=== PATIENT | female | born 1965 | race African-American/Black ===

== ENCOUNTER 2019-02-05 09:57 | Outpatient (CLI) | payer OTHER ==
--- NOTE | 2019-02-05 13:34 | Mammography Report ---
DEXA BONE DENSITY SCAN INDICATION: Postmenopausal. COMPARISON: None available. LUMBAR SPINE (L1-L4): Bone mineral density (BMD) is 0.667 g/cm2. T-score is -3.5 (standard deviations of Young Adult mean). Z-score is -2.4 (standard deviations of Age Matched mean). LEFT FEMORAL NECK: Bone mineral density (BMD) is 0.539 g/cm2. T-score is -2.8 (standard deviations of Young Adult mean). Z-score is -1.7 (standard deviations of Age Matched mean). TOTAL LEFT HIP: Bone mineral density (BMD) is 0.637 g/cm2. T-score is -2.5 (standard deviations of Young Adult mean). Z-score is -1.8 (standard deviations of Age Matched mean). IMPRESSION: 1. WHO Classification: Osteoporosis with high fracture risk based on spine left femoral neck and left hip measurements.. Signer Name: Nikolai Montero MD Signed: 02/05/2019 1:30 PM Workstation Name: [id number]
--- NOTE | 2019-02-05 13:56 | Ultrasound Report ---
ULTRASOUND RENAL INDICATION: RENAL STONE, HEMATURIA. COMPARISON: No relevant prior imaging study available. FINDINGS: RIGHT KIDNEY: Size: 9.3 cm. Echogenicity: Normal. Cortical thickness: Normal. Stones: None. Hydronephrosis: None. Cyst or mass: None. LEFT KIDNEY: Size: 9.9 cm. Echogenicity: Normal. Cortical thickness: Normal. Stones: None. Hydronephrosis: None. Cyst or mass: None. Urinary Bladder: No significant abnormality. Free Fluid: None. Additional Findings: Cholelithiasis. IMPRESSION 1. No acute sonographic abnormality of the kidneys. 2. Cholelithiasis Signer Name: Papo Calix MD Signed: 02/05/2019 1:52 PM Workstation Name: [id number]
== END 2019-02-05 09:58 | disposition home or self-care (01) ==
LOC: MAMMO 09:57
PROVIDERS: ATTEND Family Medicine
DX: M81.0 Age-related osteoporosis without current pathological fracture (principal); K80.20 Calculus of gallbladder without cholecystitis without obstruction; Z78.0 Asymptomatic menopausal state
CPT/HCPCS: 76770; 77080